=== PATIENT | male | born 1955 | race Caucasian/White ===

== ENCOUNTER 2018-09-12 13:20 | Outpatient (RCR) ==
[2018-09-12 13:52] VITALS: TEMP 208.4; BMI 29.7
[2018-09-27 10:51] VITALS: BP 126/56
== END 2018-09-27 23:59 ==
LOC: CAR.REHAB 13:20
PROVIDERS: ATTEND Thoracic Surgery (Cardiothoracic Vascular Surgery)
DX: I25.119 Atherosclerotic heart disease of native coronary artery with unspecified angina pectoris (principal)
CPT/HCPCS: 93798

== ENCOUNTER 2018-09-28 07:10 | Outpatient (RCR) ==
[2018-10-25 10:37] VITALS: BP 138/54
== END 2018-10-25 23:59 ==
LOC: CAR.REHAB 07:10
PROVIDERS: ATTEND Thoracic Surgery (Cardiothoracic Vascular Surgery)
DX: I25.119 Atherosclerotic heart disease of native coronary artery with unspecified angina pectoris (principal)
CPT/HCPCS: 93798

== ENCOUNTER 2018-10-26 07:10 | Outpatient (RCR) ==
[2018-11-22 10:43] VITALS: BP 132/62
== END 2018-11-25 23:59 ==
LOC: CAR.REHAB 07:10
PROVIDERS: ATTEND Thoracic Surgery (Cardiothoracic Vascular Surgery)
DX: I25.119 Atherosclerotic heart disease of native coronary artery with unspecified angina pectoris (principal)
CPT/HCPCS: 93798

== ENCOUNTER 2018-11-26 09:45 | Outpatient (RCR) ==
[2018-12-25 10:42] VITALS: BP 136/64
== END 2018-12-25 23:59 ==
LOC: CAR.REHAB 09:45
PROVIDERS: ATTEND Thoracic Surgery (Cardiothoracic Vascular Surgery)
DX: I25.119 Atherosclerotic heart disease of native coronary artery with unspecified angina pectoris (principal)
CPT/HCPCS: 93798

== ENCOUNTER 2018-12-26 07:29 | Outpatient (RCR) ==
[2019-01-24 10:44] VITALS: BMI 32.1
[2019-01-24 10:49] VITALS: BP 136/58
== END 2019-01-25 23:59 ==
LOC: CAR.REHAB 07:29
PROVIDERS: ATTEND Thoracic Surgery (Cardiothoracic Vascular Surgery)
DX: I25.119 Atherosclerotic heart disease of native coronary artery with unspecified angina pectoris (principal)
CPT/HCPCS: 93798

== ENCOUNTER 2019-01-24 10:40 | Emergency (ER) | payer OTHER ==
[2019-01-24 10:44] VITALS: BP 181/89; TEMP 97.7; BMI 32.1
--- NOTE | 2019-01-24 11:15 | CT ---
EXAM: CT BRAIN HISTORY: Previous stroke, currently trouble speaking TECHNIQUE: CT brain without intravenous contrast. 5-mm axial sections with Reformations. COMPARISON: None FINDINGS: There is a moderate degree of encephalomalacia of the left parietal lobe extending into the left sub insular and caudate regions consistent with old infarction. There is compensatory enlargement of the left lateral ventricle. There is periventricular low attenuation bilaterally slightly more noticeab le on the left which is in part likely related to chronic microvascular ischemic change. Subacute in farction in the left periventricular space would be difficult to completely exclude by this exam with out comparison studies. There is no midline shift, intracranial hemorrhage or subdural hematoma. Ba noemy cisterns are patent. Patchy regions of mucosal thickening in the paranasal sinuses (chronic para nasal sinusitis). Mastoid processes are clear. The skull is intact IMPRESSION: 1. 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 Cannot completely exclude a component subacute infarction on the lef t in the periventricular/posterior parietal regions. Consider correlation with MRI.
--- NOTE | 2019-01-24 11:29 | DI ---
EXAM: Chest one view HISTORY: Pain, shortness of breath, chest heaviness COMPARISON: None TECHNIQUE: Single view of the chest was performed FINDINGS: The lungs are clear. There is no pleural effusion or pneumothorax. The heart is enlarged in size. The mediastinal contour is normal. Median sternotomy wires. There are no acute abnormali ties of the bones. Surgical clips right neck. IMPRESSION: Cardiomegaly. No acute cardiopulmonary process.
--- NOTE | 2019-01-24 12:28 | ED.PDOC ---
General ED Provider: Dr. HOWARD MARTINEZ Chief Complaint: Chest Pain Stated Complaint: chest pain and shortness of breath while at cardiac rehab today brought to ED FOR FURTHER EVALUATION. NO MOTOR OR SENSORY ISSUE WHILE HE ON ARRIVAL TO E.. HIS CHEST PAIN HAD D/C UPON PRESENTATION. Time Seen by Physician: 10:43 (SEEN WITH NURSES ) Mode of Arrival: Walk-In Information Source: Patient Exam Limitations: No limitations Nursing and Triage Documentation Reviewed and Agree: Yes Does patient meet sepsis criteria?: No System Inflammatory Response Syndrome: Not Applicable Sepsis Protocol: For patient's 13 years and over: Temp is 96.8 and below OR 101 and greater Pulse >90 BPM Resp >20/minute Acutely Altered Mental Status Are patient's symptoms suggestive of a new infection, such as: -Pneumonia -Skin, Soft Tissue -Endocarditis -UTI -Bone, Joint Infection -Implantable Device -Acute Abdominal Infection -Wound Infection -Meningitis -Blood Stream Catheter Infection -Unknown Cardiovascular Complaint Exam - Chest Pain Complaint/Exam Onset: Gradual Duration: 10 MIN Timing: Intermittent Length of Chest Pain Episodes: MINS Initial Severity: Moderate Current Severity: None Location: Reports: Midsternal Pain Radiates: Reports: None Character: Reports: Dull Aggravating: Reports: None Alleviating: Reports: None Associated Signs and Symptoms: Denies: Diaphoresis, Nausea, Vomiting, Fever, Palpitations, Cough, Hemoptysis, Back pain, Abdominal pain, Dizziness, Short of air, Calf pain, Calf swelling Related History: Reports: Similar episode Related Surgical History: Reports: None History of Healthcare-Acquired Pneumonia: Reports: No Review of Systems - Review Of Systems Constitutional: Reports: No symptoms Eyes: Reports: No symptoms Ears, Nose, Mouth, Throat: Reports: No symptoms Respiratory: Reports: Short of air Cardiac: Reports: Chest pain GI: Reports: No symptoms : Reports: No symptoms Musculoskeletal: Reports: No symptoms Skin: Reports: No symptoms Neurological: Reports: No symptoms Endocrine: Reports: No symptoms Hematologic/Lymphatic: Reports: No symptoms All Other Systems: Reviewed and Negative Past Medical History - Past Medical History Previously Healthy: Yes Endocrine: Reports: Hypothyroid, Dyslipidemia Cardiovascular: Reports: CAD, Hypertension Respiratory: Reports: None Hematological: Reports: None Gastrointestinal: Reports: None Genitourinary: Reports: None Neuro/Psych: Reports: None Musculoskeletal: Reports: None Cancer: Reports: None - Surgical History General Surgical History: Reports: CABG - Family History Family History: Reports: None - Social History Smoking Status: Never smoker Hx Substance Use: No Alcohol Screening: None - Immunizations Tetanus Shot up to Date: No Physical Exam - Physical Exam Appearance: Well-appearing, No pain distress, Well-nourished Eyes: DARRELL, EOMI, Conjunctiva clear ENT: Ears normal, Nose normal, Oropharynx normal Respiratory: Airway patent, Breath sounds clear, Breath sounds equal, Respirations nonlabored Cardiovascular: RRR, Pulses normal, No rub, No murmur GI/: Soft, Nontender, No masses, Bowel sounds normal, No Organomegaly Musculoskeletal: Normal strength, ROM intact, No edema, No calf tenderness Skin: Warm, Dry, Normal color Neurological: Sensation intact, Motor intact, Reflexes intact, Cranial nerves intact, Alert, Oriented Psychiatric: Affect appropriate, Mood appropriate Interpretation - Radiology Interpretation Radiology Interpretation By: Radiologist Radiology Results: No acute changes Exam Interpreted: CT Scan (CAN NOT R/O CVA SUBACUTE ) - Rehabilitation Specialist Rate: Normal Rhythm: Sinus Ectopy: None, PVCs - EKG Interpretation Rate: Normal Rhythm: Sinus Ectopy: PVCs [place]: Right (NONESPECFIC ST CHANGES ) Re-Evaluation - Re-Evaluation Time of Re-Evaluation: 11:00 Status: Improved Vital Signs Stable: Yes Pain Level: 0 Appearance: NAD Lungs: Clear Skin: Warm and Dry Neuro: Alert and Oriented X3 CV: RRR - Re-Evaluation Time of Re-Evaluation: 12:30 Status: Improved Vital Signs Stable: Yes Pain Level: 0 Appearance: NAD Skin: Warm and Dry Neuro: Alert and Oriented X3 CV: RRR (NEURO NEGATIVE) Physician Notification - Case Discussed Physician Notified: TI TONEY Time of Notification: 13:01 ( TRANSFER ) Critical Care Note - Critical Care Note Total Time (mins): 0 Course - Course Hematology/Chemistry: 01/24/19 11:08 01/24/19 11:08 Orders, Labs, Meds: Lab Review 01/24/19 01/24/19 01/24/19 10:55 11:08 11:08 WBC 8.00 RBC 4.60 L Hgb 14.4 Hct 45.1 MCV 98.0 H MCH 31.3 H MCHC 31.9 RDW Coeff of Poornima 13.5 Plt Count 216 Immature Gran % (Auto) 0.3 Neut % (Auto) 53.4 Lymph % (Auto) 28.4 [place] % (Auto) 9.0 Eos % (Auto) 8.3 H Baso % (Auto) 0.6 Immature Gran # (Auto) 0.0 Neut # (Auto) 4.3 Lymph # (Auto) 2.3 [place] # (Auto) 0.7 Eos # (Auto) 0.7 Baso # (Auto) 0.1 PT 11.0 INR 1.10 APTT 28.3 Puncture Site O2 Saturation ABG pH ABG pCO2 ABG pO2 ABG HCO3 ABG Total CO2 ABG Base Excess Tato Test FiO2 % Sodium 140.2 Potassium 4.60 Chloride 103.5 Carbon Dioxide 26.3 Anion Gap 15.00 BUN 21.3 H Creatinine 1.92 H Estimated GFR (MDRD) 35.00 BUN/Creatinine Ratio 11.09 Glucose 90.4 Calcium 9.38 Total Bilirubin 0.62 AST 20.1 ALT 17.3 Alkaline Phosphatase 74.2 Total Creatine Kinase 60.4 Troponin I < 0.012 Total Protein 7.30 Albumin 4.49 Globulin 2.81 Albumin/Globulin Ratio 1.59 01/24/19 11:15 WBC RBC Hgb Hct MCV MCH MCHC RDW Coeff of Poornima Plt Count Immature Gran % (Auto) Neut % (Auto) Lymph % (Auto) [place] % (Auto) Eos % (Auto) Baso % (Auto) Immature Gran # (Auto) Neut # (Auto) Lymph # (Auto) [place] # (Auto) Eos # (Auto) Baso # (Auto) PT INR APTT Puncture Site L brach O2 Saturation 95.0 ABG pH 7.382 ABG pCO2 35.2 ABG pO2 77.0 L ABG HCO3 20.9 L ABG Total CO2 22 ABG Base Excess -4 L Tato Test + FiO2 % 21.0 Sodium Potassium Chloride Carbon Dioxide Anion Gap BUN Creatinine Estimated GFR (MDRD) BUN/Creatinine Ratio Glucose Calcium Total Bilirubin AST ALT Alkaline Phosphatase Total Creatine Kinase Troponin I Total Protein Albumin Globulin Albumin/Globulin Ratio Orders Category Date Time Status ABG DRAW REQUEST Stat CARDIO 01/24/19 10:46 Completed EKG-(ED ONLY) Stat CARDIO 01/24/19 10:42 Completed EKG-(ED ONLY) Stat CARDIO 01/24/19 12:31 Completed ED IV/MEDIPORT/POWERPORT .ONCE EMERGENCY 01/24/19 10:42 Active ABG Stat LAB 01/24/19 11:15 Completed CBC W/ AUTO DIFF Stat LAB 01/24/19 11:08 Completed COMPREHENSIVE METABOLIC PANEL Stat LAB 01/24/19 11:08 Completed CREATINE KINASE Stat LAB 01/24/19 11:08 Completed PARTIAL THROMBOPLASTIN TIME Stat LAB 01/24/19 10:55 Completed PT WITH INR Stat LAB 01/24/19 10:55 Completed TROPONIN I Stat LAB 01/24/19 11:08 Completed 0.9 % Sodium Chloride [Saline Flush] MEDS 01/24/19 10:42 Active 1 syr IVF PRN PRN CHEST, 1V AP ONLY Stat RADS 01/24/19 10:[address] HEAD W/O CONTRAST Stat RADS 01/24/19 10:43 Completed Medications Generic Name Dose Route Start Last Admin Trade Name Freq PRN Reason Stop Dose Admin Sodium Chloride 1 syr 01/24/19 10:42 Saline Flush IVF PRN PRN To flush IV Vital Signs: Temp Pulse Resp BP Pulse Ox 01/24/19 10:40 97.7 F 72 18 181/89 H 94 L JUDY Risk Score Age >/= 65: No >/= 3 CAD Risk Factors: Yes Known CAD (Stenosis >/= 50%): No ASA Use in Past 7 Days: Yes Severe Angina (>/= 2 episodes in 24 hours): Yes EKG ST Changes >/= 0.5mm: No Postive Cardiac Marker: No JUDY Total Score: 3 JUDY Risk Score: Risk Score Odds of by 30D 0 0.1 (0.1-0.2) 1 0.3 (0.2-0.3) 2 0.4 (0.3-0.5) 3 0.7 (0.6-0.9) 4 1.2 (1.0-1.5) 5 2.2 (1.9-2.6) 6 3.0 (2.5-3.6) 7 4.8 (3.8-6.1) Departure - Departure Time of Disposition: 13:02 Disposition: TSF SHORT-TRM HOSP Discharge Problem: Chest pain Instructions: Angina (ED) Condition: Good Pt referred to PMD for follow-up: Yes IPMP verified?: No Additional Instructions: Please call your Family Physician as soon as possible to schedule a follow-up appointment. Allergies/Adverse Reactions: Allergies No Known Allergies Allergy (Unverified 01/24/19 10:43) Home Medications: Ambulatory Orders Amantadine HCl [Amantadine] 100 mg PO BID 01/24/19 Amiodarone HCl [Pacerone] 200 mg PO BID 01/24/19 Apixaban [Eliquis] 5 mg PO BID 01/24/19 Aspirin [Aspirin EC] 81 mg PO DAILY 01/24/19 Atorvastatin Calcium [Lipitor] 20 mg PO BEDTIME 01/24/19 Bumetanide [Bumex] 0.5 mg PO PRN PRN 01/24/19 Cetirizine HCl [Zyrtec] 10 mg PO DAILY 01/24/19 Famotidine [Pepcid] 20 mg PO DAILY 01/24/19 Levothyroxine Sodium [Synthroid] 75 mcg PO DAILY 01/24/19 Metoprolol Tartrate [Lopressor] 25 mg PO DAILY 01/24/19 Sildenafil Citrate [Revatio] 10 mg PO TID 01/24/19
== END 2019-01-24 13:40 | disposition short-term general hospital (02) ==
LOC: ED 10:40
DX: R07.9 Chest pain, unspecified (principal); R06.02 Shortness of breath; E78.5 Hyperlipidemia, unspecified; E03.9 Hypothyroidism, unspecified; I25.810 Atherosclerosis of coronary artery bypass graft(s) without angina pectoris; I10 Essential (primary) hypertension; Z79.01 Long term (current) use of anticoagulants; Z79.899 Other long term (current) drug therapy; I25.119 Atherosclerotic heart disease of native coronary artery with unspecified angina pectoris
CPT/HCPCS: 36415; 80053; 82550; 82803; 84484; 85025; 85610; 85730; 93005; 93010; 93798; 99285

== ENCOUNTER 2019-01-24 13:32 | Outpatient (CLI) | payer OTHER ==
[2019-01-24 10:44] VITALS: BMI 32.1
== END 2019-01-24 13:54 | disposition short-term general hospital (02) ==
LOC: AMBL 13:32
PROVIDERS: ATTEND Internal Medicine
DX: R07.9 Chest pain, unspecified (principal); Z95.1 Presence of aortocoronary bypass graft

== ENCOUNTER 2019-03-28 07:10 | Outpatient (RCR) ==
[2019-04-18 11:06] VITALS: BP 138/56
== END 2019-04-27 23:59 ==
LOC: CAR.REHAB 07:10
PROVIDERS: ATTEND Internal Medicine
DX: I25.810 Atherosclerosis of coronary artery bypass graft(s) without angina pectoris (principal)
CPT/HCPCS: 93797